=== PATIENT | male | born 1980 | race Caucasian/White ===

== ENCOUNTER → 2020-05-10 | Outpatient (CLI) | payer BC ==
--- NOTE | 2020-05-10 09:47 | REP ---
INDICATION: RADICULOPATHY COMPARISON: None. TECHNIQUE: AP, lateral, flexion/extension, bilateral oblique, swimmer's and open-mouth views. FINDINGS: Alignment and lordosis is maintained. There is no evidence for acute fracture / compression injury or subluxation. Age-related changes are noted along with focal advanced degenerative spondylosis at C5-6 including endplate sclerosis osteophytosis and minimal disc space narrowing. Neural foramen are grossly patent. C1-C2 articulation and odontoid process are normal. IMPRESSION: Focal advanced degenerative spondylosis at the C5-6 level <Electronically signed by Carlton Ronquillo > 05/10/20 [id number]
[2020-05-10 11:52] LABS: BASO % 0.4 % (0.0-1.0); EOS # 0.1 10^3/uL (0.0-0.5); EOS % 1.5 % (0.0-3.0); HEMATOCRIT 50.1 % (42.0-52.0); HEMOGLOBIN 16.5 g/dl (13.5-17.5); LYMPH # 0.9 10^3/uL (1.5-5.0); LYMPH % 19.1 % (24.0-44.0); MEAN CORPUSCULAR HEMOGLOBIN 29.2 pg (27.0-33.0); MEAN CORPUSCULAR HGB CONC 32.9 g/dl (32.0-36.5); MEAN CORPUSCULAR VOLUME 88.7 fl (80.0-96.0); MONO # 0.7 10^3/uL (0.0-0.8); MONO % 14.3 % (0.0-5.0); NEUTROPHILS # 3.1 10^3/uL (1.5-8.5); NEUTROPHILS % 64.5 % (36.0-66.0); PLATELET COUNT, AUTOMATED 208 10^3/uL (150-450); RED BLOOD COUNT 5.65 10^6/uL (4.30-6.10); WHITE BLOOD COUNT 4.8 10^3/uL (4.0-10.0)
[2020-05-10 12:15] LABS: ALBUMIN 4.1 GM/DL (3.2-5.2); ALT/SGPT 116 U/L (12-78); BILIRUBIN,TOTAL 0.6 MG/DL (0.2-1.0); BLOOD UREA NITROGEN 18 MG/DL (7-18); CALCIUM LEVEL 9.1 MG/DL (8.5-10.1); CARBON DIOXIDE LEVEL 31 MEQ/L (21-32); CHLORIDE LEVEL 100 MEQ/L (98-107); CHOLESTEROL LEVEL 147 MG/DL (<200); CHOLESTEROL RISK RATIO 6.681 (<5); GLOMERULAR FILTRATION RATE > 60.0 (>60); GLUCOSE, FASTING 91 MG/DL (70-100); HDL CHOLESTEROL 22 MG/DL (>40); LDL CHOLESTEROL 94 MG/DL (<100); NON-HDL-C 125 MG/DL; POTASSIUM SERUM 4.7 MEQ/L (3.5-5.1); SODIUM LEVEL 136 MEQ/L (136-145); TOTAL PROTEIN 7.1 GM/DL (6.4-8.2); TRIGLYCERIDES LEVEL 157 MG/DL (<150)
[2020-05-10 12:16] LABS: PROLACTIN 17.3 NG/ML (2.1-17.7)
[2020-05-11 17:06] LABS: TESTOSTERONE FREE (DIRECT) 30.2 pg/mL (6.8-21.5); TESTOSTERONE TOTAL FOR T&D > 1500.0 ng/dL (264-916)
== END ==
LOC: M WUC 08:56
PROVIDERS: ATTEND Internal Medicine
DX: I10 Essential (primary) hypertension (principal); F52.21 Male erectile disorder; Z13.220 Encounter for screening for lipoid disorders; Z13.29 Encounter for screening for other suspected endocrine disorder; M54.12 Radiculopathy, cervical region; M47.812 Spondylosis without myelopathy or radiculopathy, cervical region

== ENCOUNTER → 2020-06-07 | Outpatient (REF) | payer BC | LOC: M LAB REF 16:45 → EEVIPCON 16:45 | PROVIDERS: ATTEND Physician Assistant | DX: L02.412 Cutaneous abscess of left axilla (principal) ==

== ENCOUNTER 2020-12-31 11:29 | Observation (INO) | payer BC ==
[~2020-12-31] VITALS: Ht 180.3 cm; Wt 131.8 kg
--- NOTE | 2020-12-31 12:47 | REP ---
INDICATION: CHEST PAIN. COMPARISON: None. TECHNIQUE: Portable FINDINGS: The technique utilized in obtaining the radiograph has magnified the cardiac silhouette and accentuated the interstitial markings. The superior mediastinal structures are midline. The cardiac silhouette is unremarkable in size, shape, and position. The diaphragmatic surfaces of the lungs are regular, and the costophrenic angles are clear. The pulmonary fernando are clear. The imaged osseous structures are intact. IMPRESSION: There is no acute cardiopulmonary disease. <Electronically signed by Lg Gutierrez > 12/31/20 [id number]
[2020-12-31 13:22] LABS: BASO % 0.4 % (0.0-1.0); EOS # 0.2 10^3/uL (0.0-0.5); EOS % 4.3 % (0.0-3.0); HEMATOCRIT 45.9 % (42.0-52.0); HEMOGLOBIN 15.7 g/dl (13.5-17.5); LYMPH # 1.3 10^3/uL (1.5-5.0); LYMPH % 24.3 % (24.0-44.0); MEAN CORPUSCULAR HEMOGLOBIN 28.6 pg (27.0-33.0); MEAN CORPUSCULAR HGB CONC 34.2 g/dl (32.0-36.5); MEAN CORPUSCULAR VOLUME 83.6 fl (80.0-96.0); MONO # 0.5 10^3/uL (0.0-0.8); MONO % 9.5 % (2.0-8.0); NEUTROPHILS # 3.3 10^3/uL (1.5-8.5); NEUTROPHILS % 61.3 % (36.0-66.0); PLATELET COUNT, AUTOMATED 234 10^3/uL (150-450); RED BLOOD COUNT 5.49 10^6/uL (4.30-6.10); WHITE BLOOD COUNT 5.4 10^3/uL (4.0-10.0)
[2020-12-31 14:03] LABS: BLOOD UREA NITROGEN 23 MG/DL (7-18); CALCIUM LEVEL 8.8 MG/DL (8.5-10.1); CARBON DIOXIDE LEVEL 28 MEQ/L (21-32); CHLORIDE LEVEL 104 MEQ/L (98-107); CK-MB VALUE MASS 29.2 NG/ML (<3.6); CPK CREATINE PHOSPHOKINASE 2430 U/L (39-308); CREATININE FOR GFR 1.23 MG/DL (0.70-1.30); GLOMERULAR FILTRATION RATE > 60.0 (>60); GLUCOSE, FASTING 137 MG/DL (70-100); POTASSIUM SERUM 3.8 MEQ/L (3.5-5.1); SODIUM LEVEL 139 MEQ/L (136-145); TROPONIN I < 0.02 NG/ML (< 0.10)
[2020-12-31] MEDS ORDERED: NS 1,000 ML IV SCH (14:45)
[2020-12-31] MEDS ORDERED: LISI40TA4 PO (14:53)
[2020-12-31] MEDS ORDERED: CHLO125TA PO (14:53)
[2020-12-31] MEDS ORDERED: KETOROLAC 30 MG/ML 1ML VIAL IV ONE (14:55)
[2020-12-31] MEDS ORDERED: ACETAMINOPHEN TAB 650MG DOSE (2X325MG) PO PRN (16:20)
[2020-12-31 17:34] LABS: RSV AMPLIFICATION NEGATIVE (NEGATIVE)
--- NOTE | 2020-12-31 17:37 | ECGEPIP ---
[facility] - ED Test Date: 2020-12-31 Pat Name: KASSIE GONG Department: Room: - Gender: Male Field Services Manager: IVIS : 1980 Requested By: Jimy Abad Order Number: [id number] Reading MD: Emily Bae Measurements Intervals [place] Rate: 79 P: 69 MO: 178 QRS: 53 QRSD: 98 T: 30 QT: 348 QTc: 399 Interpretive Statements Normal sinus rhythm with sinus arrhythmia NSTTW abnormalities No prior Electronically Signed on 12-31-2020 17:37:29 EDT by Emily Bae
[2020-12-31] MEDS ORDERED: diazePAM 2 MG TAB PO ONE (17:55)
--- NOTE | 2020-12-31 18:57 | HPEPDOC ---
[facility] Medical History & Physical Date of Admission Dec 31, 2020 Date of Service: Dec 31, 2020 Attending Physician: ZACK HENDRIX MD History and Physical CHIEF COMPLAINT: chronic moreira, back and sternal chest pain for the last 2 months that he has reduced his exercise regimen, without a current PCP. HISTORY OF PRESENT ILLNESS: 40 yo M with a history of obesity, HTN, PSUD with recreational use of of heroin and marijuana, former smoker, avid gym goer who has a history of chronic neck and back pain who recently left his PCP and is in search of a new one but in the interim has also developed sternal pain that has resulted in him reducing his exercise regimen due to pain who now presented to the ED for the pain. While in the ED, he was hemodynamically stable, reporting the pain as above, that was notably reproducible with palpation at the sternum and was mildly hypertensive. On evaluation, EKG showed sinus rhythm with ST depression in lead 3 only, and otherwise normal in all the other leads, troponin negative at <0.02, and investigations were notable for CK of 2430, CXR without acute cardiopulmonary pathology, WBC 5.4, Hgb 15.7, platelets 234, na 139, K 3.8, Cr 1.23. Given his ongoing most likely MSK sternal pain and lack of a PCP for follow up with [address] depression, ED requested medicine admission for observation and r/o ACS. He otherwise denied recent fever, chills, palpitations, SOB, swelling of legs, cough, orthopnea, abdominal pain, nausea, emesis, dizziness, headaches. PAST MEDICAL HISTORY: Obesity HTN PSUD with recreational use of of heroin and marijuana former smoker Chronic neck and back pain PAST SURGICAL HISTORY: Abdominal hernia repair R humerus repair bilateral carpal tunnel release SOCIAL HISTORY: PSUD with recreational heroin and marijuana use Former smoker Occasional alcohol use FAMILY HISTORY: HTN ALLERGIES: Please see below. REVIEW OF SYSTEMS: 10 point ROS was negative except as noted in the HPI. HOME MEDICATIONS: Please see below. PHYSICAL EXAMINATION: VITAL SIGNS: see below GENERAL APPEARANCE: obese, NAD HEENT: NCAT, EOMI, MMM CARDIOVASCULAR: RRR, no m./r/g, has sternal pain with deep palpation and twisting motions LUNGS: CTAB ABDOMEN: normoactive sounds, soft, NTND MUSCULOSKELETAL: Has sternal pain with deep palpation and twisting motions. Also has posterior neck and thoracic and lumbar back pain with palpation EXTREMITIES: WWP, no LE edema NEUROLOGICAL: CN 3012 intact, moving all extremities, grossly non-focal exami nation PSYCHIATRIC: AOx3 LABORATORY DATA and IMAGING: summarized above, see below for full details MICROBIOLOGY: Please see below. ASSESSMENT: 40 yo M with obesity, PSUD, HTN, chronic neck and back pain, avid gym goer who presented to the ED for chronic neck and back pain and more recently sternal pain that is reproducible on palpation most likely MSK and admitted for observation for hydration i/s/o mild rhabdomyolysis, referral to a PCP (likely resident clinic would yield the most timely follow up) and r/o unlikely ACS. Chest pain: most c/w with MSK i/s/o of daily exercise and reproducible on palpation and with specific motions -EKG showed ST depression in lead 3 without any other contiguous findings -troponin was negative x 1, will follow a repeat troponin -remote telemetry overnight -s/p toradol in the ED. Will use PO PRN NSAIDs if persistent at discharge -CXR without noted pathology -will set up a PCP appt at discharge at the resident clinic Mild rhabdomyolysis: -continue IVF at 150cc/hr through tomorrow AM -check CK in the morning -check AM BMP Recently worsening chronic neck and upper back pain: -f/u MRI C and T spine -will need referral to ortho-spine at discharge HTN -continue home meds tomorrow AM DVT ppx: heparin SC and LUIS FERNANDO and SCDs Dispo: obs, likely to be discharged tomorrow AM Vital Signs Vital Signs Date Time Temp Pulse Resp B/P (MAP) Pulse Ox O2 Delivery O2 Flow Rate FiO2 12/31/20 13:00 12/31/20 11:36 97.8 95 18 96 Room Air Laboratory Data Labs 24H Laboratory Tests 2 12/31/20 12:55: Immature Granulocyte % (Auto) 0.2, Neutrophils (%) (Auto) 61.3, Lymphocytes (%) (Auto) 24.3, Monocytes (%) (Auto) 9.5H, Eosinophils (%) (Auto) 4.3H, Basophils (%) (Auto) 0.4, Neutrophils # (Auto) 3.3, Lymphocytes # (Auto) 1.3L, Monocytes # (Auto) 0.5, Eosinophils # (Auto) 0.2, Basophils # (Auto) 0.0, Nucleated Red Blood Cells % (auto) 0.0, Anion Gap 7L, Glomerular Filtration Rate > 60.0, Calcium Level 8.8, Total Creatine Kinase 2430H, Creatine Kinase MB 29.2H, Creatine Kinase MB Relative Index 1.20, Troponin I < 0.02 CBC/BMP Laboratory Tests 12/31/20 12:55 Home Medications Scheduled Chlorthalidone (Chlorthalidone) 25 Mg Tablet, 25 MG PO DAILY Lisinopril (Lisinopril) 40 Mg Tablet, 40 MG PO DAILY Allergies Coded Allergies: No Known Drug Allergies (Verified Allergy, Unknown, 12/31/20) A-FIB/CHADSVASC A-FIB History Current/History of A-Fib/PAF?: No Current PO Anticoag Therapy: No Age/Risk Factor Scoring CHADSVASC: CHADSVASC Response (Comments) Value Age Risk Factor Age < 65 years old 0 Gender Risk Factor Male 0 Hx of CHF No 0 Hx of HTN Yes 1 Hx of Stroke/TIA/or VTE No 0 Hx of Diabetes No 0 Hx of Vascular Disease No 0 Total 1 Treatment Treatment ordered: NONE Reason Anticoagulant not given: Not indicated/[id number] ZACK HENDRIX MD Dec 31, 2020 16:49
[2020-12-31] MEDS ORDERED: diazePAM 10MG/2ML SYRINGE (J3360 PER 5MG) IV PRN (19:10)
[2020-12-31] MEDS ORDERED: diazePAM 10MG/2ML SYRINGE (J3360 PER 5MG) IV ONE (19:10)
[2020-12-31 21:20] VITALS: BP 165/98
[2020-12-31] MEDS ORDERED: SLF 3 ML SYR IV PRN (21:30)
--- NOTE | 2020-12-31 21:45 | REPVR ---
PROCEDURE INFORMATION: Exam: MR Cervical Spine Without Contrast Exam date and time: 12/31/2020 9:10 PM Age: 40 years old Clinical indication: Disturbance of skin sensation and weakness; Anesthesia of skin; Neck pain; Patient HX: Neck, back pain, weakness TECHNIQUE: Imaging protocol: Multiplanar magnetic resonance images of the cervical spine without contrast. COMPARISON: CR SPINE CERVICAL COMPL 05/10/2020 9:13 AM FINDINGS: Vertebrae: Reversal of normal cervical lordosis. Acute marrow space edema flanking the disc space at C5-C6 may be degenerative in origin. Spinal cord: Normal signal. No cord compression. C2-C3: No significant disc disease. No significant spinal stenosis. C3-C4: Bulging annulus with small superiorly extruded disc herniation at C3-C4 extending 3.8 mm craniad with respect to the inferior endplate of C3. There is mild mid cord impingement. C4-C5: Diffusely bulging annulus at C4-C5 effaces the ventral subarachnoid space without cord impingement. There is moderate to severe bilateral foraminal stenosis. C5-C6: Broad posterior disc protrusion at C5-C6 effaces the ventral subarachnoid space resulting in moderate cord impingement. There is severe bilateral foraminal stenosis. C6-C7: Diffusely bulging annulus at C6-C7 with small central disc protrusion located in the midline effaces the ventral subarachnoid space without cord impingement. There is moderate bilateral foraminal stenosis. C7-T1: No significant disc disease. No significant spinal stenosis. Soft tissues: Unremarkable. Vertebral arteries: Expected flow voids in the vertebral arteries. IMPRESSION: 1. Bulging annulus with small superiorly extruded disc herniation at C3-C4 extending 3.8 mm craniad with respect to the inferior endplate of C3. There is mild mid cord impingement. 2. Broad posterior disc protrusion at C5-C6 effaces the ventral subarachnoid space resulting in moderate cord impingement. There is severe bilateral foraminal stenosis. 3. Diffusely bulging annulus at C6-C7 with small central disc protrusion located in the midline effaces the ventral subarachnoid space without cord impingement. There is moderate bilateral foraminal stenosis. 4. Marrow edema at C5-C6 flanking the disc space likely degenerative in origin although acute injury not excluded in the appropriate clinical setting. Electronically signed by: Liam Hopkins On 12/31/2020 21:45:36 PM
--- NOTE | 2020-12-31 21:48 | REPVR ---
PROCEDURE INFORMATION: Exam: MR Thoracic Spine Without Contrast Exam date and time: 12/31/2020 9:10 PM Age: 40 years old Clinical indication: Pain in thoracic spine; Without myelpathy or radiculopathy; Patient HX: Neck, back pain, weakness TECHNIQUE: Imaging protocol: Multiplanar magnetic resonance images of the thoracic spine without contrast. COMPARISON: No relevant prior studies available. FINDINGS: Vertebrae: Unremarkable. Spinal cord: Normal signal. No cord compression. Discs/Spinal canal/Neural foramina: No significant disc disease. No significant spinal canal stenosis. Soft tissues: Unremarkable. Other findings: Diffuse low signal on T1 weighted images in the vertebral marrow spaces likely artifactual. Clinical correlation to exclude anemia of any etiology suggested. IMPRESSION: 1. Diffuse low signal on T1 weighted images in the vertebral marrow spaces likely artifactual. Clinical correlation to exclude anemia of any etiology suggested. 2. No acute findings. Electronically signed by: Liam Hopkins On 12/31/2020 21:47:48 PM
[2020-12-31] MEDS ORDERED: PERCOCET 5MG/325MG TAB PO ONE (22:15)
[2020-12-31] MEDS: SLF 3 ML SYR IV SCH (22:41)
[2020-12-31 23:47] VITALS: BP 115/53
--- NOTE | 2021-01-01 00:14 | IPNPDOC ---
Text Note Date of Service The patient was seen on 01/01/21. NOTE Called by nursing staff for patient complaining of increased pain in his neck/ back and requesting pain medication. Upon chart review, patient's MRI results as follows: FINDINGS: Vertebrae: Reversal of normal cervical lordosis. Acute marrow space edema flanking the disc space at C5-C6 may be degenerative in origin. Spinal cord: Normal signal. No cord compression. C2-C3: No significant disc disease. No significant spinal stenosis. C3-C4: Bulging annulus with small superiorly extruded disc herniation at C3-C4 extending 3.8 mm craniad with respect to the inferior endplate of C3. There is mild mid cord impingement. C4-C5: Diffusely bulging annulus at C4-C5 effaces the ventral subarachnoid space without cord impingement. There is moderate to severe bilateral foraminal stenosis. C5-C6: Broad posterior disc protrusion at C5-C6 effaces the ventral subarachnoid space resulting in moderate cord impingement. There is severe bilateral foraminal stenosis. C6-C7: Diffusely bulging annulus at C6-C7 with small central disc protrusion located in the midline effaces the ventral subarachnoid space without cord impingement. There is moderate bilateral foraminal stenosis. C7-T1: No significant disc disease. No significant spinal stenosis. Soft tissues: Unremarkable. Vertebral arteries: Expected flow voids in the vertebral arteries. IMPRESSION: 1. Bulging annulus with small superiorly extruded disc herniation at C3-C4 extending 3.8 mm craniad with respect to the inferior endplate of C3. There is mild mid cord impingement. 2. Broad posterior disc protrusion at C5-C6 effaces the ventral subarachnoid space resulting in moderate cord impingement. There is severe bilateral foraminal stenosis. 3. Diffusely bulging annulus at C6-C7 with small central disc protrusion located in the midline effaces the ventral subarachnoid space without cord impingement. There is moderate bilateral foraminal stenosis. 4. Marrow edema at C5-C6 flanking the disc space likely degenerative in origin although acute injury not excluded in the appropriate clinical setting. In the setting of moderate c-spine spinal impingement, I have begun pain regimen for patient and dexamethasone. Patient had no significant neuro defects on exam. I have also reached out to Dr. Ceballos, neurology, who recommends stein neurosurgical or spine surgical consult. I was able to contact [facility] neurosurgery, Dr. Anthony, who feels that this case can be handled outpatient and that the findings are not an indication for urgent intervention. Patient should follow up with ortho spine or neurosurgery promptly upon discharge. VS,Fishbone, I+O VS, Fishbone, I+O Laboratory Tests 12/31/20 12:55 Vital Signs Date Time Temp Pulse Resp B/P (MAP) Pulse Ox O2 Delivery O2 Flow Rate FiO2 12/31/20 23:47 97.1 76 16 115/53 (73) 94 Room Air I&O- Last 24 Hours up to 6 AM 01/01/21 06:00 Intake Total 1000 ml Output Total 0 ml Balance 1000 ml WM BEAULIEU Jan 01, 2021 00:14
[2021-01-01] MEDS ORDERED: dexameTHASONE 4 MG/ML 1ML VIAL (J1100 PER 1MG) IV SCH ×2 (02:00→03:00)
[2021-01-01] MEDS: KETOROLAC 30 MG/ML 1ML VIAL IV PRN ×2 (02:12→09:13)
[2021-01-01] MEDS ORDERED: PERCOCET 5MG/325MG TAB PO PRN (05:00)
[2021-01-01 05:08] VITALS: BP 133/60
[2021-01-01 05:59] LABS: HEMATOCRIT 45.6 % (42.0-52.0); HEMOGLOBIN 15.5 g/dl (13.5-17.5); MEAN CORPUSCULAR HEMOGLOBIN 28.6 pg (27.0-33.0); MEAN CORPUSCULAR VOLUME 84.1 fl (80.0-96.0); PLATELET COUNT, AUTOMATED 211 10^3/uL (150-450); RED BLOOD COUNT 5.42 10^6/uL (4.30-6.10); WHITE BLOOD COUNT 5.7 10^3/uL (4.0-10.0)
[2021-01-01] MEDS: SLF 3 ML SYR IV SCH ×2 (06:01→09:13)
[2021-01-01 06:21] LABS: BLOOD UREA NITROGEN 30 MG/DL (7-18); CARBON DIOXIDE LEVEL 29 MEQ/L (21-32); CHLORIDE LEVEL 102 MEQ/L (98-107); CREATININE FOR GFR 1.37 MG/DL (0.70-1.30); GLOMERULAR FILTRATION RATE > 60.0 (>60); GLUCOSE, FASTING 149 MG/DL (70-100); MAGNESIUM LEVEL 2.1 MG/DL (1.8-2.4); POTASSIUM SERUM 4.3 MEQ/L (3.5-5.1); SODIUM LEVEL 136 MEQ/L (136-145)
[2021-01-01 07:43] VITALS: BP 114/59
--- NOTE | 2021-01-01 07:56 | DS.PDOC ---
Discharge Summary General Date of Admission Dec 31, 2020 at 16:20 Date of Discharge 01/01/2021 Attending Physician: ZACK HENDRIX MD Discharge Summary PROCEDURES PERFORMED DURING STAY: None ADMITTING DIAGNOSES: mild rhabdomyolysis DISCHARGE DIAGNOSES: Mild rhabdomyolysis Musculoskeletal chest wall pain 2/2 to exercise overuse Obesity HTN PSUD with recreational use of of heroin and marijuana Chronic neck and back pain with noted significant cervical spine COMPLICATIONS/CHIEF COMPLAINT: Rhabdomyolysis. HISTORY OF PRESENT ILLNESS: 40 yo M with a history of obesity, HTN, PSUD with recreational use of of heroin and marijuana, former smoker, avid gym goer who has a history of chronic neck and back pain who recently left his PCP and is in search of a new one but in the interim has also developed sternal pain that has resulted in him reducing his exercise regimen due to pain who now presented to the ED for the pain. HOSPITAL COURSE: While in the ED, he was hemodynamically stable, reporting the pain as noted above, that was notably reproducible with palpation at the sternum and was mildly hypertensive. On evaluation, EKG showed sinus rhythm with ST depression in lead 3 only, and otherwise normal in all the other leads, troponin negative at <0.02, and investigations were notable for CK of 2430, CXR without acute cardiopulmonary pathology, WBC 5.4, Hgb 15.7, platelets 234, na 139, K 3.8, Cr 1.23. Given his ongoing MSK sternal pain and lack of a PCP for follow up with [address] depression, ED requested medicine admission for observation and r/o ACS? He otherwise denied recent fever, chills, palpitations, SOB, swelling of legs, cough, orthopnea, abdominal pain, nausea, emesis, dizziness, headaches. He was placed on telemetry that was grossly unremarkable for the duration of his hospital stay. He was also hydrated with fluids and his renal function remained at baseline. With regard to his chronic back pain, he did have an MRI of the C and T spine with intention and it showed bulging annulus with small superiorly extruded disc herniation at C3-C4 extending 3.8 mm craniad with respect to the inferior endplate of C3 with mid cord impingement, broad posterior disc protrusion at C5-C6 effaces the ventral subarachnoid space resulting in moderate cord impingement with severe bilateral foraminal stenosis, diffusely bulging annulus at C6-C7 with small central disc protrusion located in the midline effaces the ventral subarachnoid space without cord impingement, moderate bilateral foraminal stenosis. and marrow edema at C5-C6 flanking the disc space likely degenerative in origin although acute injury not excluded in the appropriate clinical setting. Given these findings and lack of neurosurgery or orthospine in-house, the covering provider reached out to neurology that recommended teleconsult with neurosurgery and the covering provider spoke with Dr. Anthony of [facility] about these findings and his clinical history of chronic neck and back pain, who recommended outpatient referral but without need for acute transfer for emergency neurosurgery evaluation. He is therefore now being discharged home with a new PCP appointment at the resident clinic as that would be the fastest intake, and also prompt referral to [facility] orthopedic group for ortho-spine referral. DISCHARGE MEDICATIONS: Please see below. ALLERGIES: Please see below. PHYSICAL EXAMINATION ON DISCHARGE: VITAL SIGNS: Please see below. GENERAL APPEARANCE: obese, NAD HEENT: NCAT, EOMI, MMM CARDIOVASCULAR: RRR, no m./r/g, has sternal pain with deep palpation and twisting motions LUNGS: CTAB ABDOMEN: normoactive sounds, soft, NTND MUSCULOSKELETAL: Has sternal pain with deep palpation and twisting motions. Also has posterior neck back pain with neck twisting but with FROM, full sensation and full strength in all extremities. EXTREMITIES: WWP, no LE edema NEUROLOGICAL: CN 3012 intact, moving all extremities, grossly non-focal examination PSYCHIATRIC: AOx3 LABORATORY DATA: Please see below. IMAGING: MRI C-spine: FINDINGS: Vertebrae: Reversal of normal cervical lordosis. Acute marrow space edema flanking the disc space at C5-C6 may be degenerative in origin. Spinal cord: Normal signal. No cord compression. C2-C3: No significant disc disease. No significant spinal stenosis. C3-C4: Bulging annulus with small superiorly extruded disc herniation at C3-C4 extending 3.8 mm craniad with respect to the inferior endplate of C3. There is mild mid cord impingement. C4-C5: Diffusely bulging annulus at C4-C5 effaces the ventral subarachnoid space without cord impingement. There is moderate to severe bilateral foraminal stenosis. C5-C6: Broad posterior disc protrusion at C5-C6 effaces the ventral subarachnoid space resulting in moderate cord impingement. There is severe bilateral foraminal stenosis. C6-C7: Diffusely bulging annulus at C6-C7 with small central disc protrusion located in the midline effaces the ventral subarachnoid space without cord impingement. There is moderate bilateral foraminal stenosis. C7-T1: No significant disc disease. No significant spinal stenosis. Soft tissues: Unremarkable. Vertebral arteries: Expected flow voids in the vertebral arteries. IMPRESSION: 1. Bulging annulus with small superiorly extruded disc herniation at C3-C4 extending 3.8 mm craniad with respect to the inferior endplate of C3. There is mild mid cord impingement. 2. Broad posterior disc protrusion at C5-C6 effaces the ventral subarachnoid space resulting in moderate cord impingement. There is severe bilateral foraminal stenosis. 3. Diffusely bulging annulus at C6-C7 with small central disc protrusion located in the midline effaces the ventral subarachnoid space without cord impingement. There is moderate bilateral foraminal stenosis. 4. Marrow edema at C5-C6 flanking the disc space likely degenerative in origin although acute injury not excluded in the appropriate clinical setting. MRI T-spine: FINDINGS: Vertebrae: Unremarkable. Spinal cord: Normal signal. No cord compression. Discs/Spinal canal/Neural foramina: No significant disc disease. No significant spinal canal stenosis. Soft tissues: Unremarkable. Other findings: Diffuse low signal on T1 weighted images in the vertebral marrow spaces likely artifactual. Clinical correlation to exclude anemia of any etiology suggested. IMPRESSION: 1. Diffuse low signal on T1 weighted images in the vertebral marrow spaces likely artifactual. Clinical correlation to exclude anemia of any etiology suggested. 2. No acute findings. CXR: No noted acute cardiopulmonary pathology PROGNOSIS: Good ACTIVITY: As tolerated DIET: 2g sodium DISCHARGE PLAN: Home with prompt PCP appointment and prompt ortho-spine referral DISPOSITION: Home DISCHARGE INSTRUCTIONS: Home with prompt PCP appointment and prompt ortho-spine referral ITEMS TO FOLLOWUP ON ON OUTPATIENT: Neck and chest wall pain DISCHARGE CONDITION: Stable TIME SPENT ON DISCHARGE: 45 minutes. Vital Signs/I&Os Vital Signs Date Time Temp Pulse Resp B/P (MAP) Pulse Ox O2 Delivery O2 Flow Rate FiO2 01/01/21 05:37 18 01/01/21 05:08 98.3 74 133/60 (84) 98 Room Air I&O- Last 24 Hours up to 6 AM 01/01/21 06:00 Intake Total 1000 ml Output Total 0 ml Balance 1000 ml Laboratory Data Labs 24H Laboratory Tests 2 12/31/20 12:55: Immature Granulocyte % (Auto) 0.2, Neutrophils (%) (Auto) 61.3, Lymphocytes (%) (Auto) 24.3, Monocytes (%) (Auto) 9.5H, Eosinophils (%) (Auto) 4.3H, Basophils (%) (Auto) 0.4, Neutrophils # (Auto) 3.3, Lymphocytes # (Auto) 1.3L, Monocytes # (Auto) 0.5, Eosinophils # (Auto) 0.2, Basophils # (Auto) 0.0, Nucleated Red Blood Cells % (auto) 0.0, Anion Gap 7L, Glomerular Filtration Rate > 60.0, Calcium Level 8.8, Total Creatine Kinase 2430H, Creatine Kinase MB 29.2H, Creatine Kinase MB Relative Index 1.20, Troponin I < 0.02 12/31/20 16:37: Coronavirus (COVID-19)(PCR) NEGATIVE, Influenza Type A (RT-PCR) NEGATIVE, Influenza Type B (RT-PCR) NEGATIVE, Respiratory Syncytial Virus (PCR) NEGATIVE 01/01/21 05:38: Nucleated Red Blood Cells % (auto) 0.0, Anion Gap 5L, Glomerular Filtration Rate > 60.0, Calcium Level 9.0, Magnesium Level 2.1 CBC/BMP Laboratory Tests 12/31/20 12:55 01/01/21 05:38 Discharge Medications Scheduled Chlorthalidone (Chlorthalidone) 25 Mg Tablet, 25 MG PO DAILY, (Reported) Lisinopril (Lisinopril) 40 Mg Tablet, 40 MG PO DAILY, (Reported) Allergies Coded Allergies: No Known Drug Allergies (Verified Allergy, Unknown, 12/31/20) ZACK HENDRIX MD Jan 01, 2021 07:56
[2021-01-01] MEDS ORDERED: ENOXAPARIN 40MG/0.4ML SYRINGE (J1650 PER 10MG) SC SCH (09:00)
== END 2021-01-01 10:13 | disposition home or self-care (01) ==
LOC: M ED 11:29 → M ED INP 16:20 → ENRESERV 19:54 → M PCU 21:16
PROVIDERS: ADMIT Internal Medicine; ATTEND Internal Medicine
DX: M62.82 Rhabdomyolysis (principal); R07.89 Other chest pain; E66.9 Obesity, unspecified; I10 Essential (primary) hypertension; G89.29 Other chronic pain; F19.939 Other psychoactive substance use, unspecified with withdrawal, unspecified; F12.10 Cannabis abuse, uncomplicated; F11.10 Opioid abuse, uncomplicated; Z87.891 Personal history of nicotine dependence; Z79.899 Other long term (current) drug therapy
CPT/HCPCS: 36415; 71045; 72141; 72146; 80048; 82550; 82553; 83735; 84484; 85025; 85027; 87631; 87641; 93005; 93041; 94760; 96361; 96374; 96375; 96376; 99285; J1100; J1885; J3360

== ENCOUNTER 2021-02-10 06:01 | Emergency (ER) | payer BC ==
[~2021-02-10] VITALS: Ht 180.3 cm; Wt 127.4 kg
[~2021-02-10 06:01] MED LIST: CHLO125TA PO; LISI40TA4 PO
[2021-02-10 08:02] LABS: BASO % 0.4 % (0.0-1.0); EOS # 0.1 10^3/uL (0.0-0.5); EOS % 1.7 % (0.0-3.0); HEMATOCRIT 46.3 % (42.0-52.0); HEMOGLOBIN 15.4 g/dl (13.5-17.5); LYMPH % 14.8 % (24.0-44.0); MEAN CORPUSCULAR HEMOGLOBIN 29.1 pg (27.0-33.0); MEAN CORPUSCULAR HGB CONC 33.3 g/dl (32.0-36.5); MEAN CORPUSCULAR VOLUME 87.5 fl (80.0-96.0); MONO % 14.8 % (2.0-8.0); NEUTROPHILS # 4.7 10^3/uL (1.5-8.5); PLATELET COUNT, AUTOMATED 199 10^3/uL (150-450); RED BLOOD COUNT 5.29 10^6/uL (4.30-6.10); WHITE BLOOD COUNT 6.9 10^3/uL (4.0-10.0)
[2021-02-10] MEDS ORDERED: LIDOCAINE W/EPINEPHRINE 1% 20ML VIAL SC ONE (08:35)
[2021-02-10] MEDS ORDERED: BACT800T5 PO (09:45)
[2021-02-10 10:05] VITALS: BP 133/101
== END 2021-02-10 10:05 | disposition home or self-care (01) ==
LOC: M ED 06:01
DX: L02.232 Carbuncle of back [any part, except buttock and flank] (principal); I10 Essential (primary) hypertension; Z79.899 Other long term (current) drug therapy

== ENCOUNTER 2021-02-15 17:17 | Emergency (ER) | payer BC ==
[~2021-02-15 17:17] MED LIST changes: +BACT800T5 PO
[2021-02-15] MEDS ORDERED: NS 1,000 ML IV ONE ×2 (17:25→20:10)
[2021-02-15] MEDS ORDERED: LIDOCAINE 2% 5ML JELLY UROJET TOP ONE (18:10)
[2021-02-15 18:11] LABS: BASO % 0.4 % (0.0-1.0); EOS # 0.1 10^3/uL (0.0-0.5); EOS % 1.1 % (0.0-3.0); HEMATOCRIT 47.9 % (42.0-52.0); LYMPH # 1.3 10^3/uL (1.5-5.0); LYMPH % 18.3 % (24.0-44.0); MEAN CORPUSCULAR HEMOGLOBIN 29.5 pg (27.0-33.0); MEAN CORPUSCULAR HGB CONC 35.5 g/dl (32.0-36.5); MEAN CORPUSCULAR VOLUME 83.2 fl (80.0-96.0); MONO # 0.6 10^3/uL (0.0-0.8); MONO % 8.7 % (2.0-8.0); NEUTROPHILS # 5.2 10^3/uL (1.5-8.5); NEUTROPHILS % 71.1 % (36.0-66.0); PLATELET COUNT, AUTOMATED 299 10^3/uL (150-450); RED BLOOD COUNT 5.76 10^6/uL (4.30-6.10); WHITE BLOOD COUNT 7.3 10^3/uL (4.0-10.0)
--- NOTE | 2021-02-15 18:34 | REPVR ---
PROCEDURE INFORMATION: Exam: XR Chest Exam date and time: 02/15/2021 6:01 PM Age: 40 years old Clinical indication: Chest wall pain; Additional info: Chest pain TECHNIQUE: Imaging protocol: XR of the chest. Views: 1 view. COMPARISON: OR PORTABLE CHEST X-RAY 12/31/2020 12:30 PM FINDINGS: Lungs: Unremarkable. No consolidation. Pleural spaces: Unremarkable. No pleural effusion. No pneumothorax. Heart/Mediastinum: Unremarkable. No cardiomegaly. Bones/joints: Unremarkable. IMPRESSION: No acute findings. Electronically signed by: Liam Hopkins On 02/15/2021 18:34:22 PM
[2021-02-15 18:53] LABS: APPEARANCE, URINE CLEAR (CLEAR); BACTERIA, URINE AUTO NEGATIVE (NEGATIVE); BILIRUBIN, URINE AUTO NEGATIVE (NEGATIVE); BLOOD, URINE BLOOD NEGATIVE (NEGATIVE); COLOR, URINE YELLOW (YELLOW); GLUCOSE, URINE (UA) AUTO 2+ mg/dL (NEGATIVE); KETONE, URINE AUTO TRACE mg/dL (NEGATIVE); LEUKOCYTE ESTERASE, URINE AUTO NEGATIVE (NEGATIVE); NITRITE, URINE AUTO NEGATIVE (NEGATIVE); PROTEIN, URINE AUTO NEGATIVE (NEGATIVE); RBC, URINE AUTO 0 /HPF (0-3); SPECIFIC GRAVITY URINE AUTO 1.021 (1.002-1.035); SQUAMOUS EPITHELIAL CELL UR AU 0 /HPF (0-6); WBC, URINE AUTO 1 /HPF (0-3)
[2021-02-15 18:54] LABS: MYOGLOBIN SCREEN, URINE NEGATIVE (NEGATIVE)
[2021-02-15 18:57] LABS: ALBUMIN 3.9 GM/DL (3.2-5.2); BILIRUBIN,TOTAL 0.4 MG/DL (0.2-1.0); CALCIUM LEVEL 8.5 MG/DL (8.5-10.1); CK-MB VALUE MASS 27.6 NG/ML (<3.6); CREATININE FOR GFR 1.56 MG/DL (0.70-1.30); GLOMERULAR FILTRATION RATE 52.2 (>60); MB/CK RELATIVE INDEX 1.19 (< OR =4); POTASSIUM SERUM 3.8 MEQ/L (3.5-5.1)
[2021-02-15 19:20] LABS: AMPHETAMINES LEVEL URINE POSITIVE (NEGATIVE); BARBITURATES URINE NEGATIVE (NEGATIVE); BENZODIAZEPINES URINE NEGATIVE (NEGATIVE); CANNABINOIDS URINE POSITIVE (NEGATIVE); COCAINE METABOLITE URINE NEGATIVE (NEGATIVE); METHADONE URINE NEGATIVE (NEGATIVE); OPIATES URINE POSITIVE (NEGATIVE); PHENCYCLIDINE URINE NEGATIVE (NEGATIVE)
[2021-02-15] MEDS ORDERED: ACETAMINOPHEN TAB 650MG DOSE (2X325MG) PO PRN (20:10)
[2021-02-15] MEDS ORDERED: BACTDSTA PO (20:17)
[2021-02-15] MEDS ORDERED: HYDR-3713 PO (20:18)
[2021-02-15 20:30] VITALS: BP 158/90
--- NOTE | 2021-02-15 20:31 | IPNPDOC ---
Date Seen The patient was seen on 02/15/21. Progress Note ER Physician Dr. Montano requested admission for acute rhabdomyolysis and CRAIG. Pt refused Admission and left AMA. plan: admission orders cancelled. VS, I&O, 24H, Fishbone Laboratory Data 24H LABS Laboratory Tests 2 02/15/21 17:54: Immature Granulocyte % (Auto) 0.4, Neutrophils (%) (Auto) 71.1H, Lymphocytes (%) (Auto) 18.3L, Monocytes (%) (Auto) 8.7H, Eosinophils (%) (Auto) 1.1, Basophils (%) (Auto) 0.4, Neutrophils # (Auto) 5.2, Lymphocytes # (Auto) 1.3L, Monocytes # (Auto) 0.6, Eosinophils # (Auto) 0.1, Basophils # (Auto) 0.0, Nucleated Red Blood Cells % (auto) 0.0, Anion Gap 11, Glomerular Filtration Rate 52.2L, Calcium Level 8.5, Total Bilirubin 0.4, Aspartate Amino Transf (AST/SGOT) 61H, Alanine Aminotransferase (ALT/SGPT) 86H, Alkaline Phosphatase 55, Total Creatine Kinase 2324H, Creatine Kinase MB 27.6H, Creatine Kinase MB Relative Index 1.19, Total Protein 7.0, Albumin 3.9, Albumin/Globulin Ratio 1.3 02/15/21 18:35: Urine Color YELLOW, Urine Appearance CLEAR, Urine pH 7.0, Urine Specific [place] 1.021, Urine Protein NEGATIVE, Urine Glucose (Auto)(UA) 2+H, Urine Ketones (Auto) TRACEH, Urine Blood NEGATIVE, Urine Nitrite NEGATIVE, Urine Bilirubin NEGATIVE, Urine Urobilinogen 2.0H, Urine Leukocyte Esterase (Auto) NEGATIVE, Urine WBC (Auto) 1, Urine RBC (Auto) 0, Urine Hyaline Casts (Auto) 0, Urine Bacteria (Auto) NEGATIVE, Urine Squamous Epithelial Cells 0, Urine Sperm (Auto) , Urine Myoglobin NEGATIVE, Urine Opiates Screen POSITIVEH, Urine Methadone Screen NEGATIVE, Urine Barbiturates Screen NEGATIVE, Urine Phencyclidine Screen NEGATIVE, Urine Amphetamines Screen POSITIVEH, Urine Benzodiazepines Screen NEGATIVE, Urine Cocaine Metabolite Screen NEGATIVE, Urine Cannabinoids Screen POSITIVEH CBC/BMP Laboratory Tests 02/15/21 17:54 RUFINO HENRY MD Feb 15, 2021 20:31
[2021-02-15] MEDS ORDERED: NS 1,000 ML IV SCH ×2 (21:00→23:00)
--- NOTE | 2021-02-15 21:38 | ECGEPIP ---
[facility] - ED Test Date: 2021-02-15 Pat Name: KASSIE GONG Department: Room: - Gender: Male [employer]: : 1980 Requested By: ELENO MEDINA Order Number: [id number] Reading MD: Emily Bae Measurements Intervals [place] Rate: 138 P: 65 [place]: 124 QRS: 85 QRSD: 92 T: 53 QT: 296 QTc: 448 Interpretive Statements Sinus tachycardia NSTTW abnormalities increased rate 12/31/20 Electronically Signed on 02-15-2021 21:37:52 EDT by Emily Bae
== END 2021-02-15 20:30 | disposition left against medical advice (07) ==
LOC: EDBD 17:17 → M ED 17:17 → EDSEX 17:17 → UNDOADMIN 20:06 → M ED INP 20:06
DX: F15.10 Other stimulant abuse, uncomplicated (principal); M62.82 Rhabdomyolysis; I10 Essential (primary) hypertension; Z79.899 Other long term (current) drug therapy

== ENCOUNTER → 2021-02-20 | Outpatient (CLI) | payer BC ==
[~2021-02-20] MED LIST changes: +BACTDSTA PO; +HYDR-3713 PO; +PROHANCE 279.3MG/ML 5ML VIAL As Ordered ONE
--- NOTE | 2021-02-20 11:36 | REPVR ---
PROCEDURE INFORMATION: Exam: MR Thoracic Spine With Contrast Exam date and time: 02/20/2021 11:13 AM Age: 40 years old Clinical indication: Pain in thoracic spine; Other: Pain in t spine TECHNIQUE: Axial and sagittal postcontrast T1 magnetic resonance images of the thoracic spine with intravenous contrast. Contrast material: PROHANCE; Contrast volume: 10 ml; Contrast route: INTRAVENOUS (IV); COMPARISON: MRI-Spine,Thoracic without con 12/31/2020 8:07 PM FINDINGS: Vertebrae: Vertebral body heights are stable. No abnormal enhancement. Spinal cord: Normal signal. No cord compression. No abnormal enhancement. Soft tissues: Unremarkable. No abnormal enhancement. Other findings:. The remainder of the exam is not changed significantly. IMPRESSION: No abnormal enhancement. Electronically signed by: Chacho Saleh On 02/20/2021 11:35:51 AM
== END ==
LOC: M RAD 09:53
PROVIDERS: ATTEND Physician Assistant
DX: M54.6 Pain in thoracic spine (principal)
CPT/HCPCS: 72147; A9576

== ENCOUNTER → 2021-08-15 | Outpatient (CLI) | payer BC ==
[~2021-08-15] MED LIST changes: +GABA600T4 PO; -PROHANCE 279.3MG/ML 5ML VIAL As Ordered ONE
== END ==
LOC: M LABSMTC 11:05
PROVIDERS: ATTEND Anesthesiology
DX: Z01.812 Encounter for preprocedural laboratory examination (principal); Z20.822 Contact with and (suspected) exposure to COVID-19

== ENCOUNTER → 2021-08-20 | Day surgery (SDC) | payer BC ==
[~2021-08-20] VITALS: Ht 180.3 cm; Wt 132.4 kg
[~2021-08-20] MED LIST changes: +NS 1,000 ML IV ONE
[2021-08-20 10:38] VITALS: BP 142/107
== END | disposition home or self-care (01) ==
LOC: M OPP 10:22
PROVIDERS: ATTEND Surgery
DX: R10.84 Generalized abdominal pain (principal); Z53.20 Procedure and treatment not carried out because of patient's decision for unspecified reasons

== ENCOUNTER 2022-07-23 03:56 | Inpatient (IN) | payer BC ==
[~2022-07-23] VITALS: Ht 180.3 cm; Wt 122.7 kg
[~2022-07-23 03:56] MED LIST changes: -NS 1,000 ML IV ONE
[2022-07-23] MEDS ORDERED: SUBO8MIS SL (04:04)
[2022-07-23 05:08] LABS: HEMATOCRIT 41.4 % (42.0-52.0); HEMOGLOBIN 14.2 g/dl (13.5-17.5); MEAN CORPUSCULAR HEMOGLOBIN 28.7 pg (27.0-33.0); MEAN CORPUSCULAR HGB CONC 34.3 g/dl (32.0-36.5); MEAN CORPUSCULAR VOLUME 83.8 fl (80.0-96.0); PLATELET COUNT, AUTOMATED 217 10^3/uL (150-450); RED BLOOD COUNT 4.94 10^6/uL (4.30-6.10); WHITE BLOOD COUNT 10.9 10^3/uL (4.0-10.0)
[2022-07-23 05:36] LABS: AMPHETAMINES LEVEL URINE NEGATIVE (NEGATIVE); BARBITURATES URINE NEGATIVE (NEGATIVE); BENZODIAZEPINES URINE NEGATIVE (NEGATIVE); COCAINE METABOLITE URINE NEGATIVE (NEGATIVE); METHADONE URINE NEGATIVE (NEGATIVE); OPIATES URINE NEGATIVE (NEGATIVE); PHENCYCLIDINE URINE NEGATIVE (NEGATIVE)
[2022-07-23 05:38] LABS: ETHYL ALCOHOL (ETHANOL) 0.003 % (0.000-0.010)
[2022-07-23 05:39] LABS: ACETAMINOPHEN LEVEL < 2.0 UG/ML (10.0-20.0); SALICYLATE LEVEL < 3.0 MG/DL (<30)
[2022-07-23 05:40] LABS: ALBUMIN 3.6 G/DL (3.2-5.2); ALKALINE PHOSPHATASE 102 U/L (46-116); ALT/SGPT 69 U/L (7.0-40); AST/SGOT 39 U/L (<34); BILIRUBIN,DIRECT 0.1 MG/DL (<0.4); BILIRUBIN,TOTAL 0.3 MG/DL (0.3-1.2); BLOOD UREA NITROGEN 10 MG/DL (9-23); CALCIUM LEVEL 8.8 MG/DL (8.5-10.1); CARBON DIOXIDE LEVEL 29 MMOL/L (20-31); CHLORIDE LEVEL 101 MMOL/L (98-107); CREATININE FOR GFR 0.73 MG/DL (0.70-1.30); GLOMERULAR FILTRATION RATE > 60.0 (>60); GLUCOSE, FASTING 116 MG/DL (60-100); POTASSIUM SERUM 3.4 MMOL/L (3.5-5.1); RSV AMPLIFICATION NEGATIVE (NEGATIVE); SODIUM LEVEL 138 MMOL/L (136-145); TOTAL PROTEIN 6.3 G/DL (5.7-8.2)
[2022-07-23 05:42] LABS: THYROID STIMULATING HORMONE 1.528 uIU/ML (0.55-4.78)
[2022-07-23 05:46] LABS: CANNABINOIDS URINE POSITIVE (NEGATIVE)
[2022-07-23] MEDS: NICOTINE 21MG/24HR 1 EA TRANSDERMAL TD SCH (09:00)
[2022-07-23] MEDS: OLANZapine ORAL DISINTEGRATING TAB 5MG PO ONE ×2 (11:25→11:33)
[2022-07-23] MEDS: LORazepam 2 MG TAB PO ONE ×2 (11:25→11:32)
[2022-07-23] MEDS ORDERED: OLANZapine ORAL DISINTEGRATING TAB 5MG PO PRN (12:05)
[2022-07-23] MEDS ORDERED: hydrOXYzine 50 MG TAB PO PRN (12:05)
[2022-07-23] MEDS ORDERED: traZODone 50 MG TAB PO PRN (12:05)
[2022-07-23] MEDS ORDERED: MAALOX 30 ML SUSP *UDC PO PRN (12:05)
[2022-07-23] MEDS ORDERED: ACETAMINOPHEN TAB 650MG DOSE (2X325MG) PO PRN (12:05)
[2022-07-23] MEDS ORDERED: MOM 30ML SUSPENSION UDC PO PRN (12:05)
[2022-07-23] MEDS ORDERED: HOME MED LIST COMPLETE! XX SCH (12:40)
[2022-07-23 13:16] VITALS: BP 160/100
[2022-07-23] MEDS: LORazepam 2 MG TAB PO STA ×2 (14:11→14:16)
[2022-07-24 06:33] VITALS: BP 144/81
[2022-07-24] MEDS: NICOTINE 21MG/24HR 1 EA TRANSDERMAL TD SCH (07:56)
[2022-07-24] MEDS ORDERED: NICO21PAT TD (14:12)
[2022-07-24] MEDS ORDERED: NARC1SPR NARES (14:13)
[2022-07-24] MEDS ORDERED: ZYPR5TAB2 PO (14:59)
== END 2022-07-24 15:15 | disposition home or self-care (01) | DRG 756 ==
LOC: M ED 03:56 → M ED INP 12:01 → M PSY 13:08
PROVIDERS: ADMIT Student in an Organized Health Care Education/Training Program; ATTEND Student in an Organized Health Care Education/Training Program
DX: F41.8 Other specified anxiety disorders (principal); F43.20 Adjustment disorder, unspecified; Z63.0 Problems in relationship with spouse or partner; Z79.899 Other long term (current) drug therapy; Z20.822 Contact with and (suspected) exposure to COVID-19

== ENCOUNTER → 2022-12-02 | Outpatient (CLI) | payer BC, OTHER, SELFPAY ==
[~2022-12-02] MED LIST changes: +NARC1SPR NARES; +NICO21PAT TD; +SUBO8MIS SL; +ZYPR5TAB2 PO
[2022-12-02 16:28] LABS: AMORPHOUS SEDIMENT SMALL (NEGATIVE); APPEARANCE, URINE TURBID (CLEAR); BACTERIA, URINE AUTO NEGATIVE (NEGATIVE); BILIRUBIN, URINE AUTO NEGATIVE (NEGATIVE); BLOOD, URINE BLOOD NEGATIVE (NEGATIVE); COLOR, URINE AMBER (YELLOW); GLUCOSE, URINE (UA) AUTO NEGATIVE (NEGATIVE); KETONE, URINE AUTO NEGATIVE (NEGATIVE); LEUKOCYTE ESTERASE, URINE AUTO NEGATIVE (NEGATIVE); MUCUS, URINE SMALL (NEGATIVE); NITRITE, URINE AUTO NEGATIVE (NEGATIVE); PROTEIN, URINE AUTO NEGATIVE (NEGATIVE); RBC, URINE AUTO 0 /HPF (0-3); SPECIFIC GRAVITY URINE AUTO 1.025 (1.002-1.035); SQUAMOUS EPITHELIAL CELL UR AU 0 /HPF (0-6); UROBILINOGEN, URINE AUTO 0.2 mg/dL (0.0-2.0); WBC, URINE AUTO 0 /HPF (0-3)
[2022-12-02 16:43] LABS: CREATININE, URINE 204.1 MG/DL; MAU/CREAT RATIO 6.8 MCG/MG (0.0-30.0)
[2022-12-02 16:45] LABS: ALBUMIN 3.9 G/DL (3.2-5.2); ALKALINE PHOSPHATASE 102 U/L (46-116); ALT/SGPT 78 U/L (7.0-40); AST/SGOT 31 U/L (<34); BILIRUBIN,TOTAL 0.5 MG/DL (0.3-1.2); BLOOD UREA NITROGEN 13 MG/DL (9-23); CALCIUM LEVEL 8.7 MG/DL (8.5-10.1); CARBON DIOXIDE LEVEL 28 MMOL/L (20-31); CHLORIDE LEVEL 102 MMOL/L (98-107); CHOLESTEROL LEVEL 136 MG/DL (<200); CHOLESTEROL RISK RATIO 3.46 (<5); CREATININE FOR GFR 0.89 MG/DL (0.70-1.30); GLOMERULAR FILTRATION RATE > 60.0 (>60); GLUCOSE, FASTING 95 MG/DL (60-100); HDL CHOLESTEROL 39.3 MG/DL (>40); LDL CHOLESTEROL 64.5 MG/DL (<100); NON-HDL-C 96.7 MG/DL; POTASSIUM SERUM 4.4 MMOL/L (3.5-5.1); SODIUM LEVEL 139 MMOL/L (136-145); TOTAL PROTEIN 6.7 G/DL (5.7-8.2); TRIGLYCERIDES LEVEL 161 MG/DL (<150)
== END ==
LOC: M WUC 12:10
PROVIDERS: ATTEND Family Medicine
DX: I10 Essential (primary) hypertension (principal); E66.9 Obesity, unspecified